=== PATIENT | male | born 1935 | race Caucasian/White ===

== ENCOUNTER 2018-01-20 20:20 | Emergency (ER) | payer MEDICARE, OTHER ==
[~2018-01-20] VITALS: Ht 170.2 cm; Wt 145.0 kg
[~2018-01-20 20:20] MED LIST: AMLODIPINE BESYL5 MG PO; COLCRYS0.6 MG PO; DIVALPROEX SOD500 MG PO; FISH OIL 1,0001 EAC5 PO; METOPROLOL TART25 MG PO; METOPROLOL TART50 MG PO; MIRTAZAPINE30 MG PO; OMEPRAZOLE20 M1 PO; PROMETHAZINE HC25 M1 PO; REMERON15 MG PO; SODIUM BICARBO650 MG PO; VITAMIN D-32000 UNI1 PO; VITAMIN D35000 UNIT PO; ZOFRAN ODT4 MG SL
[2018-01-20] MEDS ORDERED: MIRTAZAPINE15 MG PO (21:02)
[2018-01-20] MEDS ORDERED: DIVALPROEX SOD500 M1 PO (21:05)
[2018-01-20] MEDS ORDERED: AMLODIPINE BESY10 MG PO (21:08)
[2018-01-20] MEDS ORDERED: [UNRECOGNIZED DRUG - SUPPLY] MISC (21:10)
== END 2018-01-21 00:04 | disposition home or self-care (01) ==
LOC: ED 20:20
DX: F31.9 Bipolar disorder, unspecified (principal); I10 Essential (primary) hypertension; Z87.891 Personal history of nicotine dependence; Z79.899 Other long term (current) drug therapy
CPT/HCPCS: 80053; 85025; 99283

== ENCOUNTER 2018-02-23 19:39 | Emergency (ER) | payer MEDICARE, OTHER ==
[~2018-02-23] VITALS: Ht 170.2 cm; Wt 72.9 kg
[~2018-02-23 19:39] MED LIST changes: +AMLODIPINE BESY10 MG PO; +DIVALPROEX SOD500 M1 PO; +MIRTAZAPINE15 MG PO; +[UNRECOGNIZED DRUG - SUPPLY] MISC
--- NOTE | 2018-02-23 22:48 | NUR ---
CALLED IN FOR POSS STROKE FOR THIS PT. I WAS ASKED TO HELP LOCATE RELATIVE. I CALLED THE NICK NUMBER ON FILE BUT GOT NO RESPONCE.. 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 I CALLED THAT NUMBER AND ASKED HIM (SHARMILA) TO CALL HER AND HAVE HER CALL ME. A FEW MINUTES LATER SHE CALLED. I TOLD HER ABOUT KODY, SHE SAID SHE WOULD BE RIGHT UP. I PRAYED WITH HER AND TALKED WITH HER A WHILE. I GOT A COPY OF THE [email or web address] PACK LIST FOR HER. WHEN THINGS SETTLED MONIKA I LEFT.
--- NOTE | 2018-02-24 15:39 | EKG ---
[facility] [address] [place] [address] Signed Sinus rhythm with 1st degree AV block Moderate voltage criteria for LVH, may be normal variant Nonspecific T wave abnormality Inferolateral leads , new When compared with ECG of 08/23/2016 Abnormal ECG When compared with ECG of 23-AUG-2016 09:39, Confirmed by MINESH VILLANUEVA MD ([id number]) on 02/24/2018 3:38:41 PM Electronically Signed By: MINESH VILLANUEVA MD 02/24/18 1539 PATIENT NAME: INDYJENNY Electrocardiogram DATE OF : 39 PHYSICIAN: MINESH VILLANUEVA MD REPORT #: [id number] REPORT IS CONFIDENTIAL AND NOT TO BE RELEASED WITHOUT AUTHORIZATION
== END 2018-02-24 01:15 | disposition short-term general hospital (02) ==
LOC: ED 19:39
DX: I63.9 Cerebral infarction, unspecified (principal); N28.9 Disorder of kidney and ureter, unspecified; R56.9 Unspecified convulsions; I10 Essential (primary) hypertension; F31.9 Bipolar disorder, unspecified; Z79.899 Other long term (current) drug therapy
CPT/HCPCS: 31500; 31720; 36600; 70450; 70496; 70498; 71045; 80053; 81001; 82803; 84484; 85025; 85610; 85730; 93005; 93010; 94002; 94799; 96365; 96375; 99285; J1165; J2060; J2405; J7050; Q9967

== ENCOUNTER 2018-08-22 10:27 | Emergency (ER) | payer MEDICARE, OTHER ==
[~2018-08-22] VITALS: Ht 170.2 cm; Wt 72.9 kg
[~2018-08-22 10:27] MED LIST changes: -VITAMIN D-32000 UNI1 PO; +VITAMIN D-32000 UNIT PO
[2018-08-22] MEDS ORDERED: ATORVASTATIN CA40 MG PO (10:59)
[2018-08-22] MEDS ORDERED: FUROSEMIDE80 MG PO (10:59)
[2018-08-22] MEDS ORDERED: TAMSULOSIN HCL0.4 MG PO (11:00)
[2018-08-22] MEDS ORDERED: ONDANSETRON ODT4 MG PO (11:01)
[2018-08-22] MEDS ORDERED: HYDRALAZINE HCL10 MG NG (11:01)
[2018-08-22] MEDS ORDERED: MORPHINE 5 MG/10 ML PO (15:14)
[2018-08-22] MEDS ORDERED: TRANSDERM-SCOP1 EACH TD (15:14)
[2018-08-22] MEDS ORDERED: ATIVAN1 MG SL (15:14)
--- NOTE | 2018-08-23 07:42 | EKG ---
[facility] [address] [place] [id number] Signed Sinus bradycardia with premature supraventricular complexes Low voltage QRS Cannot rule out Anterior infarct (cited on or before 23-FEB-2018) Abnormal ECG When compared with ECG of 23-FEB-2018 19:48, premature supraventricular complexes are now present TX interval has decreased Questionable change in initial forces of Lateral leads T wave inversion no longer evident in Inferior leads Nonspecific T wave abnormality no longer evident in Lateral leads Confirmed by CHRISTINA HILLMAN MD ([id number]) on 08/23/2018 7:42:19 AM Electronically Signed By: CHRISTINA HILLMAN MD 08/23/18 0742 PATIENT NAME: JENNY PUTNAM Electrocardiogram DATE OF : 39 PHYSICIAN: CHRISTINA HILLMAN MD REPORT #: [id number] REPORT IS CONFIDENTIAL AND NOT TO BE RELEASED WITHOUT AUTHORIZATION
== END 2018-08-22 16:40 | disposition home or self-care (01) ==
LOC: ED 10:27
DX: I13.2 Hypertensive heart and chronic kidney disease with heart failure and with stage 5 chronic kidney disease, or end stage renal disease (principal); I50.9 Heart failure, unspecified; N18.6 End stage renal disease; D63.1 Anemia in chronic kidney disease; R09.02 Hypoxemia; F31.9 Bipolar disorder, unspecified; Z87.891 Personal history of nicotine dependence; Z79.899 Other long term (current) drug therapy
CPT/HCPCS: 70450; 71045; 80053; 81001; 83880; 85025; 85610; 86850; 86900; 86901; 87077; 87088; 87186; 93005; 93010; 96365; 96367; 99285-25; J0456; J0696; J7050